=== PATIENT | female | born 1990 | race Caucasian/White ===

== ENCOUNTER 2018-01-08 01:20 | Inpatient (IN) | payer BC, SELFPAY ==
[2018-01-08] MEDS ORDERED: Lorazepam 2 MG/ML VIAL ONE (01:52)
[2018-01-08 02:04] LABS: #Eosinphils 0.1 thou/uL (0.0-0.7); #Lymphocytes 1.5 thou/uL (1.20-3.40); #Monocytes 0.4 thou/uL (0.11-0.59); %Basophils 0.6 % (0.0-1.0); %Eosinophils 1.2 % (0.0-10.0); %Monocytes 6.2 % (0.0-10.0); %Neutrophils 71.1 % (42.0-75.0); Hemoglobin 14.3 g/dL (12.0-16.0); Mean Corpuscular Hemoglobin 31.4 pg (27.0-31.0); Mean Corpuscular Volume 89.7 fl (81.0-99.0); Mean Platelet Volume 11.1 fL (7.4-10.4); Platelet Count 140 thou/uL (130-400); Red Blood Cell (RBC) Count 4.55 mill/uL (4.20-5.40)
[2018-01-08] MEDS ORDERED: Midazolam HCl 2 mg/2 ml Vial ONE (02:04)
[2018-01-08 02:07] LABS: Actual Bicarbonate (HCO3a) 20.4 mEq/L (22-26); Base Excess (BEa) -1.7 mEq/L (0 (+/-) 2.5); CO2 Tension 28.1 mmHg (35.0-45.0); Hematocrit-ABG 40.2 % (36.0-47.0); Hemoglobin (Hb) 14.5 g/dL (12.0-16.0); pH, Arterial 7.48 (7.35-7.45)
[2018-01-08 02:08] LABS: ALV-art Gradient -23.125 (0-20); Analyzer IN Cardio ER; Calcium, Ionized 1.1 mmol/L (1.12-1.30); Puncture Site LRA
[2018-01-08 02:09] LABS: INR-International Normal Ratio 1.1; PTT 24.9 SEC (22.9-36.1); Prothrombin Time 14.2 SEC (12.0-14.7)
[2018-01-08 02:09] LABS: Bilirubin Negative (Negative); Blood, Urine Negative (Negative); Clarity CLEAR (Clear); Glucose, Urine (Dipstick) Negative (Negative); Leukocyte Negative (Negative); Nitrite Negative (Negative); Protein, Urine (Dipstick) Negative (Neg-Trace); Specific Gravity, Urine 1.006 (1.002-1.036); Urobilinogen 0.2 mg/dL (0.2-1.0)
[2018-01-08 02:12] LABS: BHCG - Serum Negative (NEGATIVE); Pregs Control Background? CLEAR/WHITE (CLR/WHITE); Pregs Control Bar Appear? YES (CONTROL BAR)
[2018-01-08 02:18] LABS: Amphetamine Not Detected (NotDetected); Barbiturates Screen Not Detected (NotDetected); Benzodiazepine Screen Not Detected (NotDetected); Cocaine Metabolite Screen Not Detected (NotDetected); Medtox Control Line Valid? VALID (VALID); Medtox Reader # READER 4; Methadone Not Detected (NotDetected); Methamphetamine Not Detected (NotDetected); Opiate Screen Not Detected (NotDetected); Oxycodone Screen Not Detected (NotDetected); Phencyclidine (PCP) Not Detected (NotDetected); THC/Cannabinoid Screen Not Detected (NotDetected); Tricyclic Screen Not Detected (NotDetected)
[2018-01-08 02:20] LABS: ALT (SGPT) 17 U/L (8-55); AST (SGOT) 20 U/L (5-34); Acetaminophen Less than 6.0 mcg/mL (10.0-30.0); Alcohol 105 mg/dL (Less than 10); Alkaline Phosphatase 71 U/L (40-150); Anion Gap 12 mmol/L (10-20); BUN (Urea Nitrogen) 9 mg/dL (7.0-18.7); Bilirubin, Total 0.3 mg/dL (0.2-1.2); CK (CPK) 218 U/L (29-168); Calc. Creatinine Clearance 0 mL/min (70-130); Calcium 8.2 mg/dL (7.8-10.44); Carbon Dioxide 22 mmol/L (22-29); Chloride 108 mmol/L (98-107); Estimated GFR-MDRD Greater than 90; Globulin 2.6 g/dL (2.4-3.5); Glucose 107 mg/dL (70-105); Lipase 26 U/L (8-78); Magnesium 2.2 mg/dL (1.6-2.6); Potassium 3.4 mmol/L (3.5-5.1); Protein, Total 6.6 g/dL (6.0-8.3); Salicylate Less than 8.0 mg/dL (15.0-30.0); Sodium 139 mmol/L (136-145)
[2018-01-08 02:24] LABS: CKMB 1.9 ng/mL (0-6.6); Troponin I Less than 0.010 ng/mL (< 0.028)
[2018-01-08 02:39] LABS: Thyroid Stimulating Hormone 1.8169 uIU/mL (0.35-4.94)
[2018-01-08] MEDS ORDERED: Promethazine HCl 25 MG/ML VIAL ONE (02:47)
[2018-01-08] MEDS ORDERED: Acetaminophen 650 MG Suppository PR PRN (03:48)
[2018-01-08] MEDS ORDERED: Mag-Al 1200 mg/1200 mg/30 ML UDCUP PER TUBE PRN (03:48)
[2018-01-08] MEDS ORDERED: Milk Of Magnesia 30 ML UDCUP PER TUBE PRN (03:48)
[2018-01-08] MEDS ORDERED: CCU Electrolyte Replacement 1 EACH IVPB ONE (03:48)
[2018-01-08] MEDS ORDERED: Bisacodyl 10 MG SUPP PR PRN (03:48)
[2018-01-08] MEDS ORDERED: Ondansetron HCl/PF 4 MG/2 ML Vial IVP PRN (03:48)
[2018-01-08] MEDS ORDERED: Acetaminophen 325 MG TAB PER TUBE PRN (03:48)
[2018-01-08] MEDS ORDERED: Lorazepam 2 MG/ML VIAL SLOW IVP PRN (03:54)
[2018-01-08] MEDS ORDERED: Fentanyl BOLUS 250 ML IVPB PRN (03:54)
[2018-01-08] MEDS ORDERED: fentaNYL Citrate/PF 2,000 MCG in Sodium Chloride 0.9% 60 ML IV SCH (03:54)
[2018-01-08] MEDS ORDERED: DISCONTINUE PREVIOUS NARCOTIC PAIN MEDICATIONS AND BENZODIAZEPINES FS SCH (03:54)
[2018-01-08] MEDS ORDERED: Propofol 1,000 MG/100 ML VIAL IV PRN (03:54)
[2018-01-08] MEDS ORDERED: Propofol BOLUS 1,000 MG/100 ML VIAL IV PRN (03:54)
[2018-01-08] MEDS ORDERED: CCU ELECTROLYTE REPLACEMENT PROTOCOL FS PRN (03:55)
[2018-01-08] MEDS ORDERED: Potassium Phosphate 9 MMOL in Sodium Chloride 0.9% 100 ML IVPB PRN (03:55)
[2018-01-08] MEDS ORDERED: Potassium Chloride 40 MEQ in Premix Bag 1 BAG IVPB PRN (03:55)
[2018-01-08] MEDS ORDERED: Magnesium Oxide 400 MG TAB PO PRN ×2 (03:55)
[2018-01-08] MEDS ORDERED: Potassium Chloride 40 MEQ in Sodium Chloride 0.9% 250 ML 250 ML IVPB PRN (03:55)
[2018-01-08] MEDS ORDERED: Potassium Chloride 20 MEQ TAB PO PRN (03:55)
[2018-01-08] MEDS ORDERED: Potassium Phosphate 12 MMOL in Sodium Chloride 0.9% 250 ML 250 ML IV PRN (03:55)
[2018-01-08] MEDS ORDERED: Magnesium 2 GM/NS 0.9% 100 ML 2 GM in Premix Bag 1 BAG IVPB PRN (03:55)
[2018-01-08] MEDS ORDERED: Potassium Phosphate 15 MMOL in Sodium Chloride 0.9% 250 ML 250 ML IV PRN (03:55)
[2018-01-08] MEDS ORDERED: Ventilator Sedation Protocol 1 EACH FS SCH (04:00)
--- NOTE | 2018-01-08 04:43 | HP ---
PRIMARY CARE PHYSICIAN: [place] call. REASON FOR ADMISSION: Acute respiratory failure, status epilepticus. HISTORY OF PRESENT ILLNESS: A 27-year-old female who was brought to emergency room by paramedics int ubated condition. Patient was doing drugs with friends. All of suddenly, patient was started having seizure and that is why her partner called 911. At the scene, patient was having several seizures. Patient also had 4 seizures witnessed by paramedics. Subsequently, the patient had one tonic-clonic seizure on the route. Patient was loaded with Keppra 1 gram and subsequently patient did not have a ny further seizure. For airway protection, patient was intubated. Patient was given 10 mg Valium an d 4 mg Ativan, and 100 mg ketamine, since then patient did not have any further seizure. Patient cam e to ER under intubated condition. As per report, patient was using K2 and alcohol. She was intoxic ated at the scene. REVIEW OF SYSTEMS: All review of systems tried to review with the patient, but unable to review at t his point because of intubated condition. PAST MEDICAL HISTORY: Unknown. PAST PSYCHIATRIC HISTORY: Unknown. PAST SURGICAL HISTORY: Unknown. Above-mentioned history is not known, because patient is intubated and unable to provide any history. FAMILY HISTORY: Unknown because of patient is intubated and unable to provide any history. ALLERGIES: No known drug allergy. CURRENT HOME MEDICATIONS: Unknown because patient is not able to provide any information at this poi nt. SOCIAL HISTORY: Patient does have polydrug abuse history. EMERGENCY ROOM COURSE: Patient is given Versed, Ativan, IV fluid, Phenergan. PHYSICAL EXAMINATION: VITAL SIGNS: On arrival blood pressure 125/102, pulse 105, respiratory rate 14, temperature 98.4, sa turation 100% on vent. Weight 55.8 kilograms. GENERAL: Patient is currently tachycardic, hypertensive, unresponsive on ventilator. HEAD: Normocephalic, atraumatic. EYES: Pupils dilated, reactive to light. ENT: Endotracheal tube in place. Oropharynx within normal limit. NECK: Supple. No JVD, no thyromegaly, no carotid bruit. LUNGS: Clear to auscultation without any rhonchi or rales. CARDIAC: S1, S2 regular. No murmur, no gallop, no rub. Tachycardia. ABDOMEN: Soft, bowel sounds present. No peritoneal sign, no guarding, no rigidity, no rebound. BACK: Unremarkable. EXTREMITIES: Upper extremity, passive movement of all joints are normal. Lower extremity, passive m ovement of all joints are normal. No edema. Good peripheral pulsation. SKIN: No skin rash. HEMATOLOGICAL SYSTEM: No lymphadenopathy. PSYCHIATRIC: Unable to assess at this point because patient is intubated. NEUROLOGIC: Unable to assess at this point because patient is intubated and sedated. SIGNIFICANT LABORATORY DATA: EKG based on my review reveals normal sinus rhythm within normal limits . Chest x-ray based on my review, no acute cardiopulmonary process. CT cervical spine negative for any fracture or dislocation. CT brain negative for any acute intracranial process. CBC: WBC 7.0, h emoglobin 14.3, platelet 140. INR 1.1. ABG: pH 7.48, pCO2 of 28.1, bicarbonate 20.4, pO2 of 342. BMP shows sodium 139, potassium 3.4, chloride 108, carbon dioxide 22, anion gap 12, BUN 9, creatinine 0.64, glucose 107, calcium 8.2. LFT: AST 20, ALT 17, alkaline phosphatase 71, albumin 4.0. TSH 1. 81. test negative. Cardiac enzymes, negative. Lactic acid 2.0. Urinalysis normal. Urin e drug screen negative. Serum drug screen, alcohol positive. ASSESSMENT AND PLAN: 1. Acute respiratory failure with hypoxia, currently intubated and sedated. Pulmonary will be consu lted for vent management. Most likely, patient will be extubated tomorrow morning. We will hold sed ation tomorrow morning. 2. Acute toxic metabolic encephalopathy likely due to underlying K2 and alcohol drug abuse. 3. Status epilepticus likely precipitated by toxins. Patient will need Neurology consultation, EEG, magnesium, prolactin level checked tomorrow morning. Seizure precaution will be given. 4. Hypokalemia. Patient will be given IV fluid with potassium supplementation and we will repeat la bs tomorrow. 5. Polysubstance abuse. Patient will be given counseling when patient is extubated. 6. Deep venous thrombosis prophylaxis. Lovenox 40 mg subcutaneous daily. 7. Gastrointestinal prophylaxis, Pepcid 20 mg IV b.i.d. 8. Code status: Patient is FULL CODE. Patient does not have any surrogate decision maker. Disposition plan based on clinical course. We are expecting patient's stay in hospital more than 2 m idnights.
[2018-01-08] MEDS ORDERED: Fentanyl 100 MCG/2 ML VIAL ONE (05:41)
[2018-01-08 09:41] VITALS: BMI 18.5
[2018-01-08] MEDS: Enoxaparin Sodium 40 MG/0.4 ML SYRINGE SC SCH (09:49)
[2018-01-08] MEDS: 1/2 NS w/KCL 20 mEq 1,000 ML IV SCH ×3 (10:21→21:39)
--- NOTE | 2018-01-08 11:32 | RAD ---
PORTABLE AP CHEST XRAY: DATE: 01/08/18. HISTORY: Seizures, intubated. FINDINGS: Endotracheal tube is noted in place with the tip overlying the T4 vertebral body and well above the l evel of the dustin. Nasogastric tube was also in place with the tip overlying the body of the stoma ch. There is gaseous distention of the stomach. Cardiac silhouette and pulmonary vasculature are wi thin normal limits. The lungs are clear. Osseous structures are intact. IMPRESSION: 1. Endotracheal tube and nasogastric tubes in place. 2. No acute cardiopulmonary process. POS: [facility]
[2018-01-08 11:34] LABS: Actual Bicarbonate (HCO3a) 21.1 mEq/L (22-26); Base Excess (BEa) -2.2 mEq/L (0 (+/-) 2.5); CO2 Tension 32.1 mmHg (35.0-45.0); Calcium, Ionized 1.2 mmol/L (1.12-1.30); Hematocrit-ABG 40.1 % (36.0-47.0); Hemoglobin (Hb) 14.1 g/dL (12.0-16.0); Puncture Site RR; pH, Arterial 7.44 (7.35-7.45)
[2018-01-08 11:35] LABS: ALV-art Gradient 20.555 (0-20)
[2018-01-08] MEDS: Famotidine/PF 20 mg/2ml Vial SLOW IVP SCH ×2 (11:38→20:56)
--- NOTE | 2018-01-08 13:20 | CT ---
PRELIMINARY REPORT/[facility]/EMERGENTY AFTER-HOURS PROCEDURE CT Head Without Intravenous Contrast EXAM DATE/TIME: Exam ordered 01/08/2018 2:34 AM CLINICAL HISTORY: 27 years old, female; Screening exam; Patient HX: Additional history obtained from ems, y/o intubated f with presentation of multiple seizures. Ems reports that pt had 8 seizures at home, 4 seizures wit h ems, and 1 tonic clonic seizure en route with phi that lasted approximated x45 seconds. +k2 and ETOH today and pt had dilated pupiles on exam. Pt was given 10mg valium, 4mg ativan, and 1g k eppra and sedated with 100 ketamine and rocc for intubation. No known HX of seizures. Additional hist ory obtained from ems, y/o intubated f with presentation of multiple seizures. Ems reports that pt had 8 seizures at home, 4 seizures with ems, and 1 tonic clonic seizure en route with phi that lasted approximated x45 seconds. +k2 and ETOH today and pt had dilated pupiles on exam. Pt was given 10mg valium, 4mg ativan, and 1g keppra and sedated with 100 ketamine and rocc for intuba tion. No known HX of seizures. Associated with alcohol use, associated with drug use TECHNIQUE: Axial computed tomography images of the head/brain without intravenous contrast. COMPARISON: No relevant prior studies available. FINDINGS: Brain: Normal. No hemorrhage. No significant white matter disease. No edema. Ventricles: Normal. No ventriculomegaly. Bones/joints: Normal. No acute fracture. Soft tissues: Normal. Sinuses: Unremarkable as visualized. No acute sinusitis. Mastoid air cells: Unremarkable as visualized. No mastoid effusion. Tubes, lines and devices: Patient is intubated. IMPRESSION: No acute intracranial hemorrhage. Thank you for allowing us to participate in the care of your patient. Dictated and Authenticated by: David Martinez MD 01/08/2018 3:26 AM Central Time ([place] & [place]) FINAL REPORT NONCONTRAST HEAD CT: HISTORY: Seizure. COMPARISON: None. TECHNIQUE: Noncontrast head CT is performed from the skull base to the skull vertex. FINDINGS: This report is in agreement with the preliminary report by [facility]. No acute intracranial process. POS: [facility]
--- NOTE | 2018-01-08 13:22 | CT ---
PRELIMINARY REPORT/[facility]/EMERGENTY AFTER-HOURS PROCEDURE CT Cervical Spine Without Intravenous Contrast EXAM DATE/TIME: Exam ordered 01/08/2018 2:36 AM CLINICAL HISTORY: 27 years old, female; Signs and symptoms; Weakness; Patient HX: Additional history obtained from ems, y/o intubated f with presentation of multiple seizures. Ems reports that pt had 8 seizures at home, 4 seizures with ems, and 1 tonic clonic seizure en route with phi that lasted approximated x45 seconds. +k2 and ETOH today and pt had dilated pupiles on exam. Pt was given 10mg valium, 4mg ativan, and 1g keppra and sedated with 100 ketamine and rocc for intubation. No known HX of seizures. TECHNIQUE: Axial computed tomography images of the cervical spine without intravenous contrast. COMPARISON: No relevant prior studies available. FINDINGS: Vertebrae: No acute cervical spine fracture is identified. Discs/spinal canal/neural foramina: Vertebral foramina are grossly intact. No spinal canal stenosis. Soft tissues: Normal. Nasopharynx: There are secretions within the nasopharynx. Lung apices: Unremarkable as visualized. Tubes, lines and devices: Patient intubated. IMPRESSION: No acute cervical spine fracture is identified. Thank you for allowing us to participate in the care of your patient. Dictated and Authenticated by: David Martinez MD 01/08/2018 3:29 AM Central Time ([place] & [place]) FINAL REPORT EMERGENT AFTER HOURS NONCONTRAST CT CERVICAL SPINE: DATE: 01/08/18. HISTORY: Patient presents with multiple seizures. The patient is intubated. Tonic clinic seizures. IMPRESSION: 1. No fracture or subluxation involving the cervical spine. 2. Endotracheal tube and nasogastric tubes are noted in place. 3. Fluid in the posterior nasopharynx likely related to intubation. 4. Lung apices are clear. 5. Prevertebral soft tissues are within normal limits. 6. Findings are in agreement with the preliminary report by [facility]. POS: [facility]
[2018-01-08] MEDS: Morphine 4 MG/ML VIAL SLOW IVP PRN (18:19)
--- NOTE | 2018-01-08 22:27 | CON ---
DATE OF CONSULTATION: 01/08/2018 Ms. Santacruz is a 27-year-old female. The history is obtained from her boyfriend. Apparently, they went to a constitution party last night, when they are driving home, she started having seizure activity. The admitting history and physical by Dr. Chase states that she was doing drugs, but her boyfriend says she was not. She was drinking. Her boyfriend called 911. 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 She did have a blood alcohol level of 105. Her mother was contacted by the nurse, Christine, and she was told that Ms. Santacruz has had an extensive neurological workup in [place] and has pseudoseizures. She has these events when she becomes stressed or when she drinks. She was intubated in the field. PAST MEDICAL HISTORY: Otherwise negative according to the boyfriend. SOCIAL HISTORY: She is not a smoker. She does drink obviously. FAMILY HISTORY: Negative for lung disease in early age. REVIEW OF SYSTEMS: Not obtainable. PHYSICAL EXAMINATION: VITAL SIGNS: Heart rate 71, blood pressure 106/76, respiratory rate 16. HEAD AND NECK: Unremarkable. LUNGS: Clear. HEART: Regular rhythm. S1 and S2 are normal. ABDOMEN: Soft and nontender. EXTREMITIES: Without clubbing, cyanosis, or edema. IMPRESSION: 1. ?street drug use (K2), her boyfriend denied this. 2. History of pseudoseizures. With this history provided by the mother and a neurologist in [place], they apparently has worked this up extensively. I do not think she needs EEG or magnetic resonance imaging. I will just plan on extubating her in the morning unless something comes up. Head CT and cervical spine CT were negative reportedly. Chest radiograph shows clear lung tovar. Blood gas shows pH 7.44, pCO2 32, pO2 of 88 on room air. She has a normal blood gas. 1. Pseudoseizures, unless seizures brought on by K2, which I doubt. 2. Respiratory failure. We should be able to wean her and extubate her first thing in the morning. Critical care time 40 minutes. ROBYN
[2018-01-09] MEDS: Morphine 4 MG/ML VIAL SLOW IVP PRN ×2 (00:33→05:41)
[2018-01-09] MEDS: 1/2 NS w/KCL 20 mEq 1,000 ML IV SCH (05:25)
[2018-01-09 05:54] LABS: ALT (SGPT) 16 U/L (8-55); AST (SGOT) 19 U/L (5-34); Albumin 3.9 g/dL (3.5-5.0); Alkaline Phosphatase 72 U/L (40-150); Anion Gap 11 mmol/L (10-20); BUN (Urea Nitrogen) 8 mg/dL (7.0-18.7); Bilirubin, Total 1.6 mg/dL (0.2-1.2); Calc. Creatinine Clearance 93 mL/min (70-130); Calcium 9.1 mg/dL (7.8-10.44); Carbon Dioxide 20 mmol/L (22-29); Chloride 107 mmol/L (98-107); Estimated GFR-MDRD Greater than 90; Globulin 2.6 g/dL (2.4-3.5); Glucose 77 mg/dL (70-105); Protein, Total 6.5 g/dL (6.0-8.3); Sodium 134 mmol/L (136-145)
[2018-01-09 06:09] LABS: Band 6 % (5-11); Eosinophils 1 % (0-10); Hemoglobin 14.3 g/dL (12.0-16.0); Lymphocytes 21 % (21-51); MDiff Complete? YES; Mean Corpuscular HGB CONC 34.4 g/dL (32.0-36.0); Mean Corpuscular Hemoglobin 31.5 pg (27.0-31.0); Mean Corpuscular Volume 91.7 fl (81.0-99.0); Mean Platelet Volume 11.7 fL (7.4-10.4); Monocytes 6 % (0-10); Neutrophil 66 % (42-75); PLT Morphology Comment Appears Adequate; Platelet Count 118 thou/uL (130-400); Red Blood Cell (RBC) Count 4.55 mill/uL (4.20-5.40); White Blood Cell (WBC) Count 8.7 thou/uL (4.8-10.8)
[2018-01-09 08:22] LABS: Actual Bicarbonate (HCO3a) 19.5 mEq/L (22-26); Base Excess (BEa) -3.5 mEq/L (0 (+/-) 2.5); CO2 Tension 29.6 mmHg (35.0-45.0); Calcium, Ionized 1.2 mmol/L (1.12-1.30); Hematocrit-ABG 41.3 % (36.0-47.0); Hemoglobin (Hb) 13.6 g/dL (12.0-16.0); O2 Tension (PaO2) 96.3 mmHg (80.0-100.0); Puncture Site RR; pH, Arterial 7.44 (7.35-7.45)
[2018-01-09] MEDS: Enoxaparin Sodium 40 MG/0.4 ML SYRINGE SC SCH (08:44)
[2018-01-09] MEDS: Famotidine/PF 20 mg/2ml Vial SLOW IVP SCH (09:40)
--- NOTE | 2018-01-09 09:54 | RAD ---
CHEST 1 VIEW: Date: 01/13/18 HISTORY: Dyspnea. Follow-up. COMPARISON: 01/08/18. FINDINGS: Cardiac silhouette is magnified by projection. Pulmonary vasculature unremarkable. Mediastinum midlin e. Lines and tubes appear unchanged in position. No lobar consolidation or evidence of pneumothorax. IMPRESSION: Stable radiographic appearance of the chest. POS: [facility]
--- NOTE | 2018-01-09 13:18 | PRG ---
DATE OF SERVICE: 01/09/2018 Sharon Santacruz's mother was at the bedside. Her mother has actually an excellent understanding of pse udoseizures. She said Ms. Santacruz had a psychiatrist for a while, but does not now. I have explained the downside of what just happened. It is certainly possible theoretically in the future that she h as one of these "seizures" and when EMS arrives, they decided they need to give her a chemical paraly tic to get her intubated and then they are unable to secure an airway. Her mother says that when she is on antidepressants she does well, but cannot recall what medicine she used to take. I think it is important that we start something, but her mother says the problem in the past is that she does not want to take medicines on a daily basis. PHYSICAL EXAMINATION: VITAL SIGNS: She is afebrile this morning. Her hemodynamics have been stable overnight. LUNGS: He r lungs are clear. HEART: Regular rhythm. ABDOMEN: Abdomen is soft. She had a 7.0 endotracheal tube in. She had a loud leak when the cuff was deflated. Her white count was 8.7, hemoglobin 14.3, platelets 118,000. PH 7.44, CO2 of 29, pO2 of 96 on room a ir on the ventilator. Electrolytes were unremarkable. IMPRESSION: Respiratory failure secondary to intubation by EMS when they were called for seizures wh ich turned out to be pseudoseizures. She subsequently had been extubated and has done well post-extu bation. She will be started on Zoloft since this is an inexpensive drug option. Hopefully, she will be compliant with this. This prescription should be written when she leaves. It will be up to her to take the medicine, but hopefully she will be compliant. We will sign off when she transfers out o f the Critical Care Unit. This is 30 minutes critical care time.
--- NOTE | 2018-01-09 13:32 | PDOC.PN ---
- Subjective Encounter Start Date: 01/09/18 Encounter Start Time: 09:40 -: old records requested/rev Patient seen and examined for respi failure and suspected seizure. pt is extubated early this morning, mother bedside, No overnight events she told me that she drank alcohol and she also used some K2 type drug - Objective Resuscitation Status: Resuscitation Status FULL:Full Resuscitation MAR Reviewed: Yes Vital Signs & Weight: Vital Signs (12 hours) Temp Pulse Resp BP BP Pulse Ox 01/09/18 12:30 98.5 F 82 16 101/67 99 01/09/18 11:55 99 01/09/18 11:00 98.9 F 01/09/18 08:55 100 01/09/18 07:42 99.8 F H 77 12 97 01/09/18 07:15 99.1 F 01/09/18 06:46 77 102/66 99 01/09/18 04:00 99.4 F 70 12 105/66 Weight Admit Weight 107 lb 12.897 oz Weight 96 lb 5.472 oz Most Recent Monitor Data Heart Rate from ECG 96 NIBP 98/64 NIBP BP-Mean 89 Respiration from ECG 19 SpO2 99 I&O: 01/08/18 01/09/18 01/10/18 06:59 06:59 06:59 Intake Total 2394.6 1167 Output Total 3010 1165 Balance -615.4 2 Result Diagrams: 01/09/18 04:52 01/09/18 04:52 Radiology Reviewed by me: Yes (chest xray) EKG Reviewed by me: Yes (nsr) Phys Exam - Physical Examination Constitutional: NAD HEENT: PERRLA, moist MMs, sclera anicteric Neck: no JVD, supple Respiratory: no wheezing, no rales, no rhonchi Cardiovascular: RRR, no significant murmur, no rub Gastrointestinal: soft, non-tender, no distention, positive bowel sounds Musculoskeletal: no edema, pulses present Neurological: non-focal, normal sensation, moves all 4 limbs Psychiatric: normal affect, A&O x 3 Skin: no rash, normal turgor Dx/Plan (1) Acute respiratory failure with hypoxia Code(s): J96.01 - ACUTE RESPIRATORY FAILURE WITH HYPOXIA Status: Resolved (2) Alcohol abuse Code(s): F10.10 - ALCOHOL ABUSE, UNCOMPLICATED Status: Acute (3) Hypokalemia Code(s): E87.6 - HYPOKALEMIA Status: Resolved (4) Seizure Code(s): R56.9 - UNSPECIFIED CONVULSIONS Status: Acute Comment: vs pseudoseizure (5) Thrombocytopenia Code(s): D69.6 - THROMBOCYTOPENIA, UNSPECIFIED Status: Acute (6) Toxic metabolic encephalopathy Code(s): G92 - TOXIC ENCEPHALOPATHY Status: Resolved - Plan cont current plan of care, plan discussed w/ family * will consult neurology for seizure vs pseudoseizure * start regular diet * transfer to medical * medication reviewed as below * symptomatic treatment * counselled to avoid drug abuse * discussed with mother bedside. Review of Systems - Review of Systems Constitutional: negative: fever, chills, sweats, weakness, malaise, other Eyes: negative: Pain, Vision Change, Conjunctivae Inflammation, Eyelid Inflammation, Redness, Other ENT: negative: Ear Pain, Ear Discharge, Nose Pain, Nose Discharge, Nose Congestion, Mouth Pain, Mouth Swelling, Throat Pain, Throat Swelling, Other Respiratory: negative: Cough, Dry, Shortness of Breath, Hemoptysis, SOB with Excertion, Pleuritic Pain, Sputum, Wheezing Cardiovascular: negative: chest pain, palpitations, orthopnea, paroxysmal nocturnal dyspnea, edema, light headedness, other Gastrointestinal: negative: Nausea, Vomiting, Abdominal Pain, Diarrhea, Constipation, Melena, Hematochezia, Other Genitourinary: negative: Dysuria, Frequency, Incontinence, Hematuria, Retention , Other Musculoskeletal: negative: Neck Pain, Shoulder Pain, Arm Pain, Back Pain, Hand Pain, Leg Pain, Foot Pain, Other Skin: negative: Rash, Lesions, Omer, Bruising, Other Neurological: negative: Weakness, Numbness, Incoordination, Change in Speech, Confusion, Seizures, Other - Medications/Allergies Allergies/Adverse Reactions: Allergies Allergy/AdvReac Type Severity Reaction Status Date / Time No Known Allergies Allergy Verified 01/09/18 07:42 Medications: Current Medications Acetaminophen (Tylenol) 650 mg WV Q4H PRN PRN Reason: Headache/Fever or Pain Acetaminophen (Tylenol) 650 mg PER TUBE Q4H PRN PRN Reason: Headache/Fever or Pain Al Hydroxide/Mg Hydroxide (Maalox) 30 ml PER TUBE Q6H PRN PRN Reason: Heartburn or Indigestion Bisacodyl (Dulcolax) 10 mg WV Q24H PRN PRN Reason: Constipation Enoxaparin Sodium (Lovenox) 40 mg SC 0900 TASNEEM Last Admin: 01/09/18 08:44 Dose: 40 mg Famotidine (Pepcid) 20 mg PO Q12HR TASNEEM Midazolam HCl (Versed) 100 mls @ 0 mls/hr IVPB INF TASNEEM; Titrate PRN Reason: Protocol Magnesium Hydroxide (Milk Of Magnesium) 30 ml PER TUBE DAILYPRN PRN PRN Reason: Constipation Ondansetron HCl (Zofran) 4 mg IVP Q6H PRN PRN Reason: Nausea/Vomiting Sodium Chloride (Flush - Normal Saline) 10 ml IVF Q12HR TASNEEM Sodium Chloride (Flush - Normal Saline) 10 ml IVF PRN PRN PRN Reason: Saline Flush
[2018-01-09] MEDS: Famotidine 20 MG TAB PO SCH (20:57)
[2018-01-10 05:15] LABS: Eosinophils 4 % (0-10); Lymphocytes 34 % (21-51); MDiff Complete? YES; Mean Corpuscular HGB CONC 34.5 g/dL (32.0-36.0); Mean Corpuscular Hemoglobin 31.3 pg (27.0-31.0); Mean Corpuscular Volume 90.8 fl (81.0-99.0); Mean Platelet Volume 11.1 fL (7.4-10.4); Monocytes 8 % (0-10); Neutrophil 51 % (42-75); Platelet Count 134 thou/uL (130-400); RBC Distribution Width 10.9 % (11.5-14.5); Reactive Lymphocytes 3 % (0-10); Red Blood Cell (RBC) Count 4.48 mill/uL (4.20-5.40); White Blood Cell (WBC) Count 7.4 thou/uL (4.8-10.8)
[2018-01-10 05:18] LABS: ALT (SGPT) 15 U/L (8-55); AST (SGOT) 18 U/L (5-34); Albumin 3.9 g/dL (3.5-5.0); Alkaline Phosphatase 64 U/L (40-150); Anion Gap 12 mmol/L (10-20); BUN (Urea Nitrogen) 9 mg/dL (7.0-18.7); Bilirubin, Total 0.7 mg/dL (0.2-1.2); Calc. Creatinine Clearance 94 mL/min (70-130); Calcium 9.1 mg/dL (7.8-10.44); Carbon Dioxide 21 mmol/L (22-29); Chloride 108 mmol/L (98-107); Estimated GFR-MDRD Greater than 90; Globulin 2.8 g/dL (2.4-3.5); Glucose 101 mg/dL (70-105); Potassium 3.8 mmol/L (3.5-5.1); Protein, Total 6.7 g/dL (6.0-8.3); Sodium 137 mmol/L (136-145)
[2018-01-10] MEDS ORDERED: HYDROcodone/Acetaminophen 5/325 mg Tablet PO PRN (06:54)
[2018-01-10] MEDS ORDERED: Eucerin (Mineral Oil/Petrolatum,White) 30 gm Jar TOP PRN (06:54)
[2018-01-10] MEDS ORDERED: Chloraseptic Spray 180 ml Bottle PO PRN (06:54)
[2018-01-10] MEDS ORDERED: Loperamide HCl 2 MG CAP PO PRN (06:54)
[2018-01-10] MEDS ORDERED: Ondansetron ODT 4 MG TAB PO PRN (06:54)
[2018-01-10] MEDS ORDERED: Sodium Chloride 0.65% Nasal 44 ML BOT EA NARE PRN (06:54)
[2018-01-10] MEDS ORDERED: Milk Of Magnesia 30 ML UDCUP PO PRN (06:54)
[2018-01-10] MEDS ORDERED: Diabetic Tussin 200 MG/10 ML UDCUP PO PRN (06:54)
[2018-01-10] MEDS ORDERED: Artificial Tears 18 DROP/0.9 ML EA EYE PRN (06:54)
[2018-01-10] MEDS ORDERED: Lorazepam 1 MG TAB PO PRN (06:54)
[2018-01-10] MEDS ORDERED: Mag-Al 1200 mg/1200 mg/30 ML UDCUP PO PRN (06:54)
[2018-01-10] MEDS ORDERED: Acetaminophen 325 MG TAB PO PRN (06:54)
[2018-01-10] MEDS ORDERED: Loratadine 10 MG TAB PO PRN (06:54)
[2018-01-10] MEDS ORDERED: levETIRAcetam 500 MG TAB PO SCH (09:00)
[2018-01-10] MEDS: Enoxaparin Sodium 40 MG/0.4 ML SYRINGE SC SCH (09:39)
[2018-01-10] MEDS: Famotidine 20 MG TAB PO SCH (09:54)
[2018-01-10 11:42] VITALS: BP 91/54; TEMP 98.4
--- NOTE | 2018-01-10 12:20 | DIS ---
DATE OF ADMISSION: 01/08/2018 DATE OF DISCHARGE: 01/10/2018 PRIMARY CARE PHYSICIAN: [facility] call admission. DISCHARGE DISPOSITION: Home. PRIMARY DISCHARGE DIAGNOSES: 1. Acute toxic metabolic encephalopathy, resolved. 2. Hypokalemia, corrected. 3. Acute respiratory failure with hypoxia, resolved. 4. Thrombocytopenia. 5. Seizures/pseudoseizure. SECONDARY DISCHARGE DIAGNOSES: History of pseudoseizure and alcohol abuse. PRIMARY PROCEDURE/OPERATION: Endotracheal intubation and mechanical ventilatory support. RADIOLOGICAL INVESTIGATION: CT brain normal. CT cervical spine negative for any fracture or disloca tion. Chest x-ray normal. SIGNIFICANT LABS: WBC 7.4, hemoglobin 14.0, platelet 134. INR 1.1. Sodium 137, potassium 3.8, BUN 9, creatinine 0.63. LFT normal. Prolactin 11.5. TSH 1.97. test negative. Magnesium lev el 2.2. Urinalysis normal. Urine drug screen negative. Alcohol level 105 on admission. DISCHARGE MEDICATIONS: Keppra 500 mg p.o. b.i.d. CONTRAINDICATIONS: None. CODE STATUS: FULL CODE. INPATIENT CONSULTANTS: Dr. Amber Soriano was consulted while in hospital, who recommended to do MRI and start Keppra. Dr. Taylor was consulted for vent management. TEST RESULTS PENDING ON DISCHARGE: None. ALLERGIES: No known drug allergy. DISCHARGE PLAN: Post hospital, the patient will follow up with Dr. Amber Soriano as instructed. HOSPITAL COURSE: A 27-year-old female who abused alcohol at the scene and subsequently we also found that she also used some kind of K2 type of drug. She had a seizure and that is why paramedics was david parker and the patient had a witnessed seizure by paramedics as well and subsequently she was brought to the ER. She was intubated for airway protection. She was given Keppra by paramedics. Subsequent ly, she did not have any further seizure. Her prolactin level was elevated. Rest of the labs were u nremarkable. The patient's mother also reported that she has a history of pseudoseizure and she had extensive workup in the [place] area. We consulted our Neurology and they recommended to continue Kep pra therapy. We also trying to do MRI as per Neurology recommendation. Official report of MRI will be pending and the patient can follow up with the Neurology as an outpatient basis. We provided patient counseling to avoid alcohol abuse as well as any other kind of illicit drugs. Me dication compliance education given. Dietary education given. Healthy lifestyle measures discussed with the patient. The patient is seen and examined at bedside today. PHYSICAL EXAMINATION: VITAL SIGNS: Currently, temperature 98.4, pulse 74, respiratory rate 16, saturation 98% on room air, blood pressure 91/54, weight 107 pounds. GENERAL: The patient is currently alert, awake, no acute distress. HEAD: Normocephalic, atraumatic. EYES: Pupils round, reactive to light. Extraocular muscle intact. ENT: Oropharynx within normal limits. Moist mucous membranes. No oral lesion, no pharyngeal erythe ma, no exudate. NECK: Supple, no JVD, no thyromegaly, no carotid bruit. LUNGS: Clear to auscultation without any rhonchi or rales. CARDIAC: S1, S2 regular without any murmur. ABDOMEN: Soft and benign. EXTREMITIES: No edema. NEUROLOGIC: Nonfocal examination. The patient is medically stable for discharge. Patient will follow up with Neurology as an outpatien t basis. Plan of care discussed with the patient and patient's mother at bedside.
--- NOTE | 2018-01-10 12:23 | CON ---
DATE OF CONSULTATION: 01/09/2018 REASON FOR CONSULTATION: Status epilepticus. REFERRING PHYSICIAN: Fady Chase M.D. HISTORY OF PRESENT ILLNESS: Ms. Santacruz is a pleasant 27-year-old female who has been consu lted for evaluation of status epilepticus. History is partly obtained from patient as well as patien t's dictated H and P note. Apparently, the patient was having republican with her friends and there she h ad sudden onset of passing out and seizure type activity. Her boyfriend had called 911 and patient w as witnessed to have 4 episodes of seizures by paramedics. She was brought to the [facility] en route, she had another episode of seizure in the ER and thus she had to be intubated for airway protection. She was given Valium 10 mg and 4 mg of Ativan and 100 mg of ketamine to break her episod e of seizure. Apparently, she was using K2 and alcohol and she was intoxicated at the scene. She re ports that she has a history of seizures since 2010 and she has not been on seizure medications for a long time. In the beginning the seizures were happening every other day; however, over the past 3- 4 years, they have been happening one every twice a year, for the last episode of seizure was more th an 2 years ago. She is currently not taking any seizure medications. PAST MEDICAL HISTORY: Significant for seizure disorder. PAST SURGICAL HISTORY: None significance. FAMILY HISTORY: Noncontributory. CURRENT MEDICATIONS: Please review MAR. ALLERGIES: No known drug allergies. SOCIAL HISTORY: She reports of alcohol use. She denies illicit drug use. She denies smoking. REVIEW OF SYSTEMS: As mentioned above in the HPI, otherwise negative. PHYSICAL EXAMINATION: VITAL SIGNS: Blood pressure of 101/67, pulse of 82, temperature of 98.5, respirations 16, O2 saturat ion 98% on room air. GENERAL: Well-developed, well-nourished female in no apparent distress. RESPIRATORY: Clear to auscultation bilaterally. CARDIOVASCULAR: Regular rate and rhythm. NEUROLOGIC: Mental status: The patient is awake, alert, oriented x3. Speech and language: Fluent speech. Cranial nerves: Pupils are 3 mm and reactive. Visual tovar are intact. External muscles are intact. No nystagmus is noted. Face is symmetric. Tongue and uvula are midline. Motor exam sh owed normal tone and bulk with 5/5 strength in both upper and lower extremities. Sensation is intact and symmetric. Deep tendon reflexes, 2+ reflexes in both upper and lower extremities. Babinski: P lantar responses flexion bilaterally. Coordination intact to [id number] and finger tapping b ilaterally. LABORATORY DATA: Reviewed, which include CBC, CMP, urinalysis, and urine drug screen, which is signi ficant for sodium of 134 and plasma alcohol level of 105 mg per deciliter. Otherwise, unremarkable. IMAGING STUDIES: CT head without contrast was reviewed which showed no acute intracranial abnormalit y. IMPRESSION: 1. Status epilepticus, now improved. 2. Alcohol intoxication. 3. Polysubstance abuse. Ms. Santacruz is a pleasant 27-year-old female who presented with multiple seizures that were indicative of status epilepticus. At this time, I would recommend obtaining MRI brain with and witho ut contrast. I would recommend starting her on Keppra 500 mg b.i.d. If she remains stable and seizu re free over the night, she is okay to be discharged to home. I have discussed with her about seizur e precautions including no driving for at least 3 months. I have also advised her that she should av oid drinking alcohol as well as avoid using illicit drugs as they can potentiate the risk for having seizures. The patient states that she is living out of town and has no means of coming to see me in the clinic and thus she would like to be seen by a neurologist close to her home, which I have advise d her to find a neurologist close to her home within 1-2 weeks. Thank you for the consultation.
--- NOTE | 2018-01-10 15:07 | MRI ---
MRI BRAIN WITH AND WITHOUT CONTRAST: History: Seizure. Technique: Pre and post contrast enhanced MRI images of the brain. Comparison: 01-08-18 FINDINGS: Multiplanar, multisequence pre and post contrast enhanced MRI images of the brain obtained. Images demonstrate no evidence of areas of diffusion restriction. The brain is unremarkable. Ventricl es are of normal size. There is mucosal thickening in the right frontal sinus, right ethmoid sinuses, right and left sphenoi d sinuses as well as minimally in the right maxillary sinus. Findings are compatible with sinusitis. No evidence of air fluid levels seen. No abnormal areas of intracranial enhancement seen. No other si gnificant intracranial pathology seen. The temporal lobes and brain parenchyma is unremarkable. IMPRESSION: Unremarkable pre and post contrast enhanced MR images of the brain. POS: [facility]
--- NOTE | 2018-01-11 08:18 | PRG ---
Ms. Santacruz has been scheduled for discharge. It appears that the history that I obtained from the mo ther was not obtained by the neurologist or the hospitalist. She very clearly informed me that Ms. 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 Without that history, she has been given the diagnosis of status epilepticus and it was recommended that she be on Keppra. I a m trying to contact Neurology. I do not feel that this is appropriate management based on the histor y and I do not think we do her any favors by telling her she has seizures when she has only extensive history of having pseudoseizures in the past, worked up by a neurologist in [place]. I will try to n otify the Hospitalist as well.
--- NOTE | 2018-01-11 08:24 | ADD-DIS ---
ADDENDUM This patient has discharge medication, Keppra 500 mg p.o. b.i.d. on previous discharge summary. That medication was discontinued after Dr. Taylor discussed case with Dr. Clark and Dr. Clark recommended to start on Zoloft [address] Taylor also agreed with that. At this point, our suspicious is more to her pseudoseizure, this patient had extensive workup done in [place] area with a neurologist and final diagnosis was made over there was pseudoseizure and during this admission, we also suspected pseudoseizure. Based on Neurology and Pulmonary recommendation, we discontinued Keppra on discharge and prescription is given for Zoloft 50 mg p.o. daily. MTDD
== END 2018-01-10 18:24 | disposition home or self-care (01) | DRG 917 ==
LOC: ERS 01:20 → EDBD 01:20 → ERHOLD 03:00 → CCU 03:46 → T4-B 01-09 13:39
PROVIDERS: ADMIT Internal Medicine; ATTEND Internal Medicine
PROC: 5A1945Z Respiratory Ventilation, 24-96 Consecutive Hours (ICD-10-PCS; principal; 2018-01-08)
DX: T65.891A Toxic effect of other specified substances, accidental (unintentional), initial encounter (principal); J96.01 Acute respiratory failure with hypoxia; G92 Toxic encephalopathy; E87.6 Hypokalemia; T51.0X1A Toxic effect of ethanol, accidental (unintentional), initial encounter; F19.129 Other psychoactive substance abuse with intoxication, unspecified; R56.9 Unspecified convulsions; D69.6 Thrombocytopenia, unspecified; F10.129 Alcohol abuse with intoxication, unspecified; Y90.5 Blood alcohol level of 100-119 mg/100 ml; Y92.009 Unspecified place in unspecified non-institutional (private) residence as the place of occurrence of the external cause
CPT/HCPCS: 36415; 70450; 70553; 71045; 72125; 80053; 80306; 80307; 81003; 82550; 82553; 82805; 83605; 83690; 83735; 84146; 84443; 84484; 84703; 85007; 85025; 85027; 85610; 85730; 93005; 94002; 94003; 95816; 95819; A4216; J1650; J2060; J2250; J2270; J2550; J3010; J3480; J7050; S0028